=== PATIENT | female | born 1935 | race Hispanic/Latino ===

== ENCOUNTER 2017-08-22 09:57 | Outpatient (CLI) | payer MEDICARE ==
--- NOTE | 2017-08-22 11:45 | XRay Report ---
Right hip 3 views. History: Right hip pain. Findings: A right hip prosthesis is identified in satisfactory position. No lucency is seen adjacent to the distal stem. No acute findings are seen. Orthopedic rods and disc spacers are seen in the lower lumbar spine. Bony mineralization is normal for age. Impression: Normal postoperative appearance of the right hip.
== END 2017-08-22 09:58 | disposition home or self-care (01) ==
LOC: SPVIMAG 09:57
PROVIDERS: ATTEND Orthopaedic Surgery Sports Medicine
DX: M25.551 Pain in right hip (principal); Z96.641 Presence of right artificial hip joint

== ENCOUNTER 2017-11-02 13:48 | Outpatient (CLI) | payer MEDICARE ==
--- NOTE | 2017-11-02 22:02 | XRay Report ---
FINAL REPORT EXAM: XR SPINE LUMBOSACRAL 4+V HISTORY: BACK PAIN TECHNIQUE: Lumbar spine three views PRIORS: None. FINDINGS: There is posterior fusion hardware with disc spacers present from T11 through S1. Hardware appears intact and demonstrates expected positioning. No evidence for hardware fracture. No destructive bony changes are observed. Skeletal structures appear osteopenic. IMPRESSION: Status post fusion at T11 through S1 Osteopenia
== END 2017-11-02 13:49 | disposition home or self-care (01) ==
LOC: SPVIMAG 13:48
PROVIDERS: ATTEND Orthopaedic Surgery Sports Medicine
DX: M85.88 Other specified disorders of bone density and structure, other site (principal); M43.24 Fusion of spine, thoracic region
CPT/HCPCS: 72110